=== PATIENT | female | born 1960 | race Caucasian/White ===

== ENCOUNTER → 2016-07-27 | Outpatient (CLI) | payer OTHER ==
[~2016-07-27] MED LIST: COLACE 100MG C100 MG PO; COZAAR25 MG PO; ESTRADIOL1 EAC1 TD; FLONASE 0.05% N16 GM; IBUPROFEN800 MG PO; LISINOPRIL40 MG PO; LORTAB 7.5-3251 EACH PO; NORCO 5-325 TA1 EACH PO; PROGESTERONE100 MG PO; SINGULAIR10 MG PO; VITAMIN D5000 UNIT PO
[2016-07-27 09:34] LABS: HEMOGLOBIN 13.9 gm/dl (12.3-15.3); RED BLOOD COUNT 4.46 M/UL (4.00-5.10); WHITE BLOOD COUNT 8.9 K/UL (4.5-11.0)
[2016-07-27 09:52] LABS: BUN/CREATININE RATIO 20 (0-10)
== END ==
LOC: OPSV2 08:49
PROVIDERS: Obstetrics & Gynecology
DX: Z01.810 Encounter for preprocedural cardiovascular examination (principal); Z01.812 Encounter for preprocedural laboratory examination; N88.8 Other specified noninflammatory disorders of cervix uteri; I10 Essential (primary) hypertension
CPT/HCPCS: 36415; 80048; 81001; 85025; 93005

== ENCOUNTER → 2016-08-03 | Day surgery (SDC) | payer OTHER | END | disposition home or self-care (01) | LOC: OR 06:47 | PROVIDERS: Obstetrics & Gynecology | PROC: 0UBG8ZZ Excision of Vagina, Via Natural or Artificial Opening Endoscopic (ICD-10-PCS; principal; 2016-08-03 09:00) | DX: D25.0 Submucous leiomyoma of uterus (principal); E78.5 Hyperlipidemia, unspecified; I10 Essential (primary) hypertension; J44.9 Chronic obstructive pulmonary disease, unspecified; K21.9 Gastro-esophageal reflux disease without esophagitis; M19.90 Unspecified osteoarthritis, unspecified site; G89.29 Other chronic pain; F17.210 Nicotine dependence, cigarettes, uncomplicated; Z88.8 Allergy status to other drugs, medicaments and biological substances; Z90.49 Acquired absence of other specified parts of digestive tract; Z79.1 Long term (current) use of non-steroidal anti-inflammatories (NSAID); Z79.891 Long term (current) use of opiate analgesic; Z79.899 Other long term (current) drug therapy | CPT/HCPCS: J1885; J2250; J2405; J2795; J7120 ==